=== PATIENT | female | born 1940 | race Caucasian/White ===

== ENCOUNTER → 2017-03-21 | Outpatient (CLI) | payer OTHER, MEDICARE | LOC: FIMAGING 11:56 | PROVIDERS: ATTEND Internal Medicine | DX: R59.1 Generalized enlarged lymph nodes (principal) ==

== ENCOUNTER → 2017-05-17 | Outpatient (CLI) | payer OTHER, MEDICARE ==
[~2017-05-17] MED LIST: IOPAMIDOL (ISOVUE 370) 100 ML BTL IV ONE
== END ==
LOC: FIMAGING 12:57
PROVIDERS: ATTEND Internal Medicine
DX: I10 Essential (primary) hypertension (principal); I77.3 Arterial fibromuscular dysplasia; I70.1 Atherosclerosis of renal artery; I87.8 Other specified disorders of veins; K80.20 Calculus of gallbladder without cholecystitis without obstruction; I87.1 Compression of vein
CPT/HCPCS: 74175; Q9967; 82384-90

== ENCOUNTER 2017-07-09 07:40 | Day surgery (SDC) | payer OTHER, MEDICARE ==
[2017-07-09] MEDS ORDERED: GLUCAGON HCL 1 MG VIAL IVP PRN (07:57)
[2017-07-09] MEDS ORDERED: HEPARIN 10,000 UNIT/10 ML MDV IVP PRN (07:57)
[2017-07-09] MEDS ORDERED: PROTAMINE SULFATE 50 MG/5 ML VIAL IVP PRN (07:57)
[2017-07-09] MEDS ORDERED: ALTEPLASE 2 MG VIAL IVP PRN (07:57)
[2017-07-09] MEDS ORDERED: FLUMAZENIL 0.5 MG/5 ML MDV IVP PRN (07:58)
[2017-07-09] MEDS ORDERED: MEPERIDINE 25 MG/ML SYR IVP PRN (07:58)
[2017-07-09] MEDS ORDERED: NALOXONE HCL 0.4 MG/ML INJ IVP PRN (07:58)
[2017-07-09] MEDS ORDERED: MIDAZOLAM 2 MG/2 ML VIAL IVP PRN (07:58)
[2017-07-09] MEDS ORDERED: fentaNYL 100 MCG/2 ML INJ IVP PRN (07:58)
[2017-07-09] MEDS ORDERED: NS 1,000 ML IV SCH ×2 (08:00→13:15)
--- NOTE | 2017-07-09 09:15 | PDGENHP ---
History & Physical Chief Complaint: hypertension History of Present Illness: Worsening hypertension, difficult to control with medication. Fluid retention with norvasc Pertinent Past, Social, Family History: Quit smoking in 1966. Ph.D. Relevant Physical Exam: Heart: 60 bpm, RRR, no murmur. Lungs, Clear to auscultation Cardiorespiratory Assessment: ASA 2. Malampati 1. 3/3/2
--- NOTE | 2017-07-09 09:19 | PDPROPOC ---
Sedation Plan of Care Sedation Plan of Care: vital signs stable, mental status noted, patient educated of risks, benefits, alternatives, patient can tolerate sedation ASA Classification: ASA 2 Planned drugs: fentanyl, midazolam Mallampati Score: Class 1 Mallampati Reference Image: Patient passed 3-3-2 rule?: Yes
[2017-07-09] MEDS ORDERED: IOPAMIDOL (ISOVUE-300) 100 ML BTL ONE (09:26)
[2017-07-09 09:30] VITALS: PULSE 62; TEMP 97.7
[2017-07-09] MEDS ORDERED: fentaNYL 100 MCG/2 ML INJ ONE (09:53)
[2017-07-09] MEDS ORDERED: MIDAZOLAM 2 MG/2 ML VIAL ONE (09:53)
[2017-07-09] MEDS ORDERED: HEPARIN 10,000 UNIT/10 ML MDV ONE (10:00)
[2017-07-09 10:18] VITALS: RESP 10; O2SAT 97
[2017-07-09] MEDS ORDERED: NITROGLYCERIN/D5W 50 MG/250 ML BOTTLE IV ONE (10:20)
[2017-07-09] MEDS ORDERED: PROTAMINE SULFATE 50 MG/5 ML VIAL IVP ONE (11:16)
[2017-07-09 11:36] VITALS: BP 144/82
--- NOTE | 2017-07-09 11:36 | PDRADPN ---
Radiology Procedure Note Date of Procedure: 07/09/17 Radiologist: Romain Rey Anesthesia: IV Sedation Pre-op Diagnosis: Hypertension Post-op Diagnosis: Fibromuscular dysplasia and atherosclerosis Indication: Poorly controlled hypertension Procedure: Balloon angioplasty and stenting of renal arteries. Starclose right fem. Finding(s): Bilateral FMD. Probable atherosclerotic stenosis on left. Good results with 5 mm balloon bilaterally and 5mm X 15mm balloon expandable stent on the left. Intact DP and PT pulses in right foot after starclose. Inf/Abcess present in the surg proc area at time of surgery?: No EBL: Minimal Complications: 0
[2017-07-09] MEDS ORDERED: OXYCODONE/APAP 5/325 TAB PO PRN (13:15)
[2017-07-09] MEDS ORDERED: ONDANSETRON 4 MG/2 ML VIAL IVP PRN (13:15)
== END 2017-07-09 17:12 | disposition home or self-care (01) ==
LOC: FIMAGING 07:40
PROVIDERS: ATTEND Radiology Diagnostic Radiology
PROC: 04793ZZ Dilation of Right Renal Artery, Percutaneous Approach (ICD-10-PCS; principal; 2017-07-09)
PROC: 047A3DZ Dilation of Left Renal Artery with Intraluminal Device, Percutaneous Approach (ICD-10-PCS; principal; 2017-07-09)
DX: I77.3 Arterial fibromuscular dysplasia (principal); I70.1 Atherosclerosis of renal artery; I10 Essential (primary) hypertension; Z87.891 Personal history of nicotine dependence
CPT/HCPCS: 37246; 99152; 99153; C1769; C1892; C1725; C1760; C1876; J1644; J2250; J2720; J3010; Q9967

== ENCOUNTER → 2018-05-27 | Outpatient (CLI) | payer OTHER, MEDICARE | LOC: FIMAGING 08:54 | PROVIDERS: ATTEND Internal Medicine | DX: I10 Essential (primary) hypertension (principal); I77.3 Arterial fibromuscular dysplasia; N28.1 Cyst of kidney, acquired; I70.0 Atherosclerosis of aorta; M51.36 Other intervertebral disc degeneration, lumbar region; Z95.5 Presence of coronary angioplasty implant and graft | CPT/HCPCS: 74175; Q9967; 82565-PO ==

== ENCOUNTER → 2019-01-15 | Outpatient (CLI) | payer OTHER, MEDICARE | LOC: FIMAGING 09:03 | PROVIDERS: ATTEND Internal Medicine | DX: K86.89 Other specified diseases of pancreas (principal); N28.1 Cyst of kidney, acquired; K80.20 Calculus of gallbladder without cholecystitis without obstruction ==

== ENCOUNTER → 2019-01-28 | Outpatient (CLI) | payer OTHER, MEDICARE | LOC: FIMAGING 08:29 ==